=== PATIENT | female | born 1995 | race Caucasian/White ===

== ENCOUNTER → 2017-09-15 | Outpatient (CLI) | payer OTHER ==
[~2017-09-15] MED LIST: ETON68IM SQ; FLU60SYR30 IM ONLY; FLUO-202 PO; FLUO40CA76 PO; MULT-7 PO; SERT-1 PO
== END ==
LOC: LAB 09:44
PROVIDERS: ATTEND Nurse Practitioner Primary Care
DX: Z11.3 Encounter for screening for infections with a predominantly sexual mode of transmission (principal)
CPT/HCPCS: 36415; 86592; 86703; 87491; 87591

== ENCOUNTER 2018-02-21 23:15 | Emergency (ER) | payer OTHER ==
--- NOTE | 2018-02-21 23:21 | ER Report ---
History and Physical Time Seen By MD: 23:20 HPI/ROS CHIEF COMPLAINT: Nausea, vomiting, diarrhea HISTORY OF PRESENT ILLNESS: Patient is a 22-year-old female here with complaints of nausea, vomiting, diarrhea which started a couple hours ago. Patient reports several episodes of emesis but denies blood in the stools or urine or vomitus. Denies prior history of abdominal surgeries. Patient is afebrile, hemodynamically stable at time of evaluation. Abdomen is soft and mildly tender in the periumbilical distribution. REVIEW OF SYSTEMS: Constitutional: No fever, + chills. Eyes: No discharge. ENT: No sore throat. Cardiovascular: No chest pain, no palpitations. Respiratory: No cough, no shortness of breath. Gastrointestinal: + periumbilical abdominal pain, + NV and D Genitourinary: No hematuria. Musculoskeletal: No back pain. Skin: No rashes. Neurological: + headache. Allergies: Coded Allergies: No Known Drug Allergies (Unverified , 12/05/16) Home Meds Active Scripts Ondansetron 4 Mg Odt (ONDANSETRON 4 MG ODT) 4 Mg Tab.rapdis, 4 MG PO Q6H PRN for NAUSEA, #20 TAB Prov:ARLETTE WHALEN S DO 02/22/18 Reported Medications Etonogestrel (NEXPLANON) 68 Mg Implant, 68 MG SQ DIRECTED, IMPLANT 10/11/16 Discontinued Reported Medications Multivits,Ca,Minerals/Iron/FA (Thera M Plus Tablet) 1 Each Tablet, PO QDAY 12/09/16 Discontinued Scripts Fluoxetine Hcl (PROZAC) 40 Mg Capsule, 1 CAP PO QDAY for 90 Days, #90 CAPSULE 3 Refills Prov:ALEXANDRIA MARSHALL DNP, [employer] 04/14/17 Hx Smoking: No Smoking Status: Never Smoker Exposure to Second Hand Smoke?: No Hx Substance Use Disorder: Yes ([place]IS) Hx Alcohol Use: No Constitutional Vital Sign - Last 24 Hours 02/21/18 02/21/18 02/21/18 02/22/18 23:19 23:30 23:45 00:00 Temp 97.5 Pulse 68 69 63 68 Resp 20 B/P (MAP) 123/76 122/77 (92) 109/79 (89) Pulse Ox 97 99 95 94 O2 Delivery Room Air 02/22/18 02/22/18 00:05 00:30 Pulse 64 B/P (MAP) 113/64 (80) Pulse Ox 95 Intake and Output 02/21/18 02/21/18 02/22/18 15:00 23:00 07:00 Intake Total 1000 ml Balance 1000 ml Physical Exam General Appearance: The patient is alert, has no immediate need for airway protection and no signs of toxicity. Uncomfortable appearing Eyes: Pupils equal and round no pallor or injection. ENT, Mouth: Mucous membranes are moist. Respiratory: There are no retractions, lungs are clear to auscultation. Cardiovascular: Regular rate and rhythm. Gastrointestinal: Abdomen is soft and + mildly tender in the periumbilical region, no masses, bowel sounds normal. No rebound or guarding Neurological: No focal neuro deficits Skin: Warm and dry, no rashes. Musculoskeletal: Neck is supple non tender. Extremities are nontender, nonswollen and have full range of motion. DIFFERENTIAL DIAGNOSIS: After history and physical exam differential diagnosis was considered for abdominal pain including but not limited to appendicitis, cholecystitis, gastritis and urinary tract infection. Gastroenteritis, viral syndrome Medical Decision Making Data Points Result Diagram: 02/21/18 2333 02/21/18 2333 Laboratory Hematology Test 02/21/18 23:19 02/21/18 23:33 Urine Color Yellow Urine Clarity Slightly-cloudy Urine pH 5.0 pH (4.8-9.5) Urine Specific [place] 1.027 Urine Protein Negative mg/dL (NEGATIVE) Urine Glucose (UA) Negative mg/dL (NEGATIVE) Urine Ketones Negative mg/dL (NEGATIVE) Urine Blood Negative (NEGATIVE) Urine Nitrite Negative (NEGATIVE) Urine Bilirubin Negative (NEGATIVE) Urine Urobilinogen 2.0 mg/dL (0.2-1.9) Urine Leukocyte Esterase Negative (NEGATIVE) Urine RBC <1 /HPF (0-2/HPF) Urine WBC 1 /HPF (0-5/HPF) Urine Squamous Epithelial Cells Many /LPF (</=FEW) Urine Bacteria Few /HPF (NONE-FEW) Urine Mucus Few /HPF (NONE-FEW) Red Blood Count 5.27 M/uL (4.17-5.56) Mean Corpuscular Volume 88.7 fL (80.0-96.0) Mean Corpuscular Hemoglobin 29.8 pg (26.0-33.0) Mean Corpuscular Hemoglobin Concent 33.6 g/dL (32.0-36.0) Red Cell Distribution Width 13.4 % (11.5-14.5) Mean Platelet Volume 10.4 fL (7.2-11.1) Neutrophils (%) (Auto) % (39.4-72.5) Lymphocytes (%) (Auto) % (17.6-49.6) Monocytes (%) (Auto) % (4.1-12.4) Eosinophils (%) (Auto) % (0.4-6.7) Basophils (%) (Auto) % (0.3-1.4) Nucleated RBC Relative Count (auto) /100WBC Neutrophils # (Auto) K/uL (2.0-7.4) Lymphocytes # (Auto) K/uL (1.3-3.6) Monocytes # (Auto) K/uL (0.3-1.0) Eosinophils # (Auto) K/uL (0.0-0.5) Basophils # (Auto) K/uL (0.0-0.1) Nucleated RBC Absolute Count (auto) K/uL Neutrophils % (Manual) 68 % (39.4-72.5) Lymphocytes % (Manual) 20 % (17.6-49.6) Atypical Lymphocytes % 5 % Monocytes % (Manual) 6 % (4.1-12.4) Eosinophils % (Manual) 1 % (0.4-6.7) Basophils % (Manual) 0 % (0.3-1.4) Peripheral Blood Smear Yes Y/N Sodium Level 138 mmol/L (137-145) Potassium Level 3.8 mmol/L (3.5-5.0) Chloride Level 103 mmol/L (98-107) Carbon Dioxide Level 28 mmol/L (22-31) Blood Urea Nitrogen 12 mg/dl (7-18) Creatinine 0.80 mg/dl (0.52-1.04) Glomerular Filtration Rate Calc > 60.0 Random Glucose 91 mg/dl (75-110) Calcium Level 9.3 mg/dl (8.4-10.2) Total Bilirubin 0.4 mg/dl (0.2-1.3) Aspartate Amino Transf (AST/SGOT) 31 U/L (0-35) Alanine Aminotransferase (ALT/SGPT) 35 U/L (0-56) Alkaline Phosphatase 71 U/L (0-126) C-Reactive Protein < 0.5 mg/dl (<1.0) Total Protein 7.3 g/dl (6.3-8.2) Albumin 4.2 g/dl (3.5-5.0) Lipase 63 U/L (23-300) Human Chorionic Gonadotropin, Qual Negative (NEGATIVE) Chemistry Test 02/21/18 23:19 02/21/18 23:33 Urine Color Yellow Urine Clarity Slightly-cloudy Urine pH 5.0 pH (4.8-9.5) Urine Specific [place] 1.027 Urine Protein Negative mg/dL (NEGATIVE) Urine Glucose (UA) Negative mg/dL (NEGATIVE) Urine Ketones Negative mg/dL (NEGATIVE) Urine Blood Negative (NEGATIVE) Urine Nitrite Negative (NEGATIVE) Urine Bilirubin Negative (NEGATIVE) Urine Urobilinogen 2.0 mg/dL (0.2-1.9) Urine Leukocyte Esterase Negative (NEGATIVE) Urine RBC <1 /HPF (0-2/HPF) Urine WBC 1 /HPF (0-5/HPF) Urine Squamous Epithelial Cells Many /LPF (</=FEW) Urine Bacteria Few /HPF (NONE-FEW) Urine Mucus Few /HPF (NONE-FEW) White Blood Count 11.4 k/uL (4.5-11.0) Red Blood Count 5.27 M/uL (4.17-5.56) Hemoglobin 15.7 g/dL (12.0-16.0) Hematocrit 46.8 % (34.0-47.0) Mean Corpuscular Volume 88.7 fL (80.0-96.0) Mean Corpuscular Hemoglobin 29.8 pg (26.0-33.0) Mean Corpuscular Hemoglobin Concent 33.6 g/dL (32.0-36.0) Red Cell Distribution Width 13.4 % (11.5-14.5) Platelet Count 216 K/uL (150-450) Mean Platelet Volume 10.4 fL (7.2-11.1) Neutrophils (%) (Auto) % (39.4-72.5) Lymphocytes (%) (Auto) % (17.6-49.6) Monocytes (%) (Auto) % (4.1-12.4) Eosinophils (%) (Auto) % (0.4-6.7) Basophils (%) (Auto) % (0.3-1.4) Nucleated RBC Relative Count (auto) /100WBC Neutrophils # (Auto) K/uL (2.0-7.4) Lymphocytes # (Auto) K/uL (1.3-3.6) Monocytes # (Auto) K/uL (0.3-1.0) Eosinophils # (Auto) K/uL (0.0-0.5) Basophils # (Auto) K/uL (0.0-0.1) Nucleated RBC Absolute Count (auto) K/uL Neutrophils % (Manual) 68 % (39.4-72.5) Lymphocytes % (Manual) 20 % (17.6-49.6) Atypical Lymphocytes % 5 % Monocytes % (Manual) 6 % (4.1-12.4) Eosinophils % (Manual) 1 % (0.4-6.7) Basophils % (Manual) 0 % (0.3-1.4) Peripheral Blood Smear Yes Y/N Glomerular Filtration Rate Calc > 60.0 Calcium Level 9.3 mg/dl (8.4-10.2) Total Bilirubin 0.4 mg/dl (0.2-1.3) Aspartate Amino Transf (AST/SGOT) 31 U/L (0-35) Alanine Aminotransferase (ALT/SGPT) 35 U/L (0-56) Alkaline Phosphatase 71 U/L (0-126) C-Reactive Protein < 0.5 mg/dl (<1.0) Total Protein 7.3 g/dl (6.3-8.2) Albumin 4.2 g/dl (3.5-5.0) Lipase 63 U/L (23-300) Human Chorionic Gonadotropin, Qual Negative (NEGATIVE) Urinalysis Test 02/21/18 23:19 Urine Color Yellow Urine Clarity Slightly-cloudy Urine pH 5.0 pH (4.8-9.5) Urine Specific [place] 1.027 Urine Protein Negative mg/dL (NEGATIVE) Urine Glucose (UA) Negative mg/dL (NEGATIVE) Urine Ketones Negative mg/dL (NEGATIVE) Urine Blood Negative (NEGATIVE) Urine Nitrite Negative (NEGATIVE) Urine Bilirubin Negative (NEGATIVE) Urine Urobilinogen 2.0 mg/dL (0.2-1.9) Urine Leukocyte Esterase Negative (NEGATIVE) Urine RBC <1 /HPF (0-2/HPF) Urine WBC 1 /HPF (0-5/HPF) Urine Squamous Epithelial Cells Many /LPF (</=FEW) Urine Bacteria Few /HPF (NONE-FEW) Urine Mucus Few /HPF (NONE-FEW) ED Course/Re-evaluation ED Course Patient is a 22-year-old female here with complaints of nausea, vomiting, diarrhea starting several hours ago. Last meal was dinner time when the patient ate pizza. Patient reports periumbilical abdominal pain, several episodes of emesis, headache. Patient is hemodynamically stable, afebrile at time of evaluation. Upon reevaluation, patient had significant improvement in symptoms. Patient passed oral challenge with water. She is given Zofran ODT to go and a prescription for Zofran with instructions to follow a bland diet for the next 24 hours and to follow up closely with her PCP. Patient is hemodynamically stable at time of discharge. Labs came back unremarkable with a white blood cell count of 11,000, CRP was negative, electrolytes are stable. Decision was made to forego CT imaging at this time due to patient's constellation of symptoms, lab findings and physical exam findings. Patient was advised to return promptly if she developed worsening abdominal pain, inability to keep down food or fluids, fevers, abdominal distention. Decision to Disposition Date: Feb 22, 2018 Decision to Disposition Time: 00:34 Depart Departure Latest Vital Signs Vital Signs Date Time Temp Pulse Resp B/P (MAP) Pulse Ox O2 Delivery O2 Flow Rate FiO2 02/22/18 00:30 113/64 (80) 02/22/18 00:05 64 95 02/21/18 23:19 97.5 20 Room Air Impression: Primary Impression: Nausea & vomiting Additional Impression: Diarrhea Condition: Improved Disposition: HOME OR SELF-CARE Referrals: ALEXANDRIA MARSHALL DNP, [employer] (PCP) New Scripts Ondansetron 4 Mg Odt (ONDANSETRON 4 MG ODT) 4 Mg Tab.rapdis 4 MG PO Q6H PRN for NAUSEA, #20 TAB Prov: ARLETTE WHALEN DO 02/22/18 Departure Forms: ER Transition Record, Medications Reconciliation, Off Work/School Form, School or Work Release?: Work Number of days to be released: 1 Patient Portal Information Patient Instructions: Acute Nausea and Vomiting (ED), Dehydration (ED) Additional Instructions: Please drink plenty of water. You may take 1 tablet of Zofran every 4-6 hours as needed for nausea and vomiting. Please return immediately if you develop worsening abdominal pain, inability to keep down food or fluids, fevers, abdominal distention, trouble breathing, blood in the stools or urine. Please follow up closely with your family doctor. Problem Qualifiers ARLETTE WHALEN DO Feb 21, 2018 23:21
[2018-02-21] MEDS ORDERED: NS(*) 0.9% 1000 ML BAG 1,000 ML IV ONE (23:27)
[2018-02-21] MEDS ORDERED: ONDANSETRON 4 MG/2 ML VIAL IVP ONE (23:30)
[2018-02-21] MEDS ORDERED: KETOROLAC 30 MG/ML VIAL IVP ONE (23:30)
[2018-02-21 23:44] LABS: PLATELET COUNT, AUTOMATED 216 K/uL (150-450)
[2018-02-22 00:30] VITALS: BP 113/64
[2018-02-22] MEDS ORDERED: ONDA4TAB9 PO (00:36)
[2018-02-22] MEDS ORDERED: ONDANSETRON 4 MG ODT TH SL ONE (00:40)
== END 2018-02-22 00:46 | disposition home or self-care (01) ==
LOC: ER 23:34
DX: R11.2 Nausea with vomiting, unspecified (principal); R19.7 Diarrhea, unspecified
CPT/HCPCS: 81001; 83690; 84703; 85025; 86140; 96361; 96374; 96375; 99284; J1885; J2405; J7030; S0119; 82040; 82247; 82310; 82374; 82435; 82565; 82947; 84075; 84132; 84155; 84295; 84450; 84460; 84520

== ENCOUNTER → 2018-10-14 | Outpatient (CLI) | payer OTHER ==
[~2018-10-14] MED LIST changes: +ALUM35SO4 TP; +CLIN25GE3 TP; +ONDA4TAB9 PO
== END ==
LOC: LAB 09:48
PROVIDERS: ATTEND Nurse Practitioner Primary Care
DX: Z11.3 Encounter for screening for infections with a predominantly sexual mode of transmission (principal)
CPT/HCPCS: 87491; 87591